=== PATIENT | male | born 1980 | race Caucasian/White ===

== ENCOUNTER 2017-07-12 10:20 | Emergency (ER) | payer OTHER ==
[~2017-07-12] VITALS: Ht 177.8 cm; Wt 84.4 kg
[2017-07-12 11:07] LABS: ABSOLUTE EOSINOPHILS 0.4 thou/uL (0.0-0.7); ABSOLUTE LYMPHOCYTES 2.4 thou/uL (0.8-5.3); ABSOLUTE MONOCYTES 0.6 thou/uL (0.0-1.2); ABSOLUTE NEUTROPHILS 2.5 thou/uL (1.6-8.1); BASOPHILS 0.8 %; EOSINOPHILS 7.1 %; HEMATOCRIT 42.3 % (42.0-52.0); LYMPHOCYTES 40.3 %; MCH 28.9 pg (26.0-34.0); MCHC 33.2 g/dL (28.0-37.0); MCV 87.2 fL (80.0-100.0); MONOCYTES 9.8 %; MPV 8.5 fl. (7.2-11.1); NUCLEATED RBCS 0 /100WBC; PLATELET COUNT* 262 thou/uL (150-400); RBC 4.85 mil/uL (4.50-6.00); RDW-CV 13.5 % (10.5-14.5); WBC 5.9 thou/uL (4.0-11.0)
[2017-07-12 11:14] LABS: ANION GAP 3 mmol/L (7-16); BUN 13 mg/dL (7-18); CALCIUM 8.4 mg/dL (8.5-10.1); CHLORIDE 108 mmol/L (98-107); CO2 32 mmol/L (21-32); CREATININE 0.9 mg/dL (0.6-1.3); GLUCOSE 82 mg/dL (70-99); POTASSIUM 4.1 mmol/L (3.5-5.1); SODIUM 143 mmol/L (136-145)
[2017-07-12 11:20] LABS: ALBUMIN 3.5 g/dL (3.4-5.0); ALKALINE PHOSPHATASE 77 U/L (46-116); LIPASE 205 U/L (73-393); SGOT 21 U/L (15-37); SGPT 29 U/L (30-65); TOTAL BILIRUBIN 0.1 mg/dL (<0.1-1.0); TROPONIN-I LEVEL <0.06 ng/mL (<0.06)
[2017-07-12 12:39] VITALS: BP 143/94
--- NOTE | 2017-07-13 15:23 | EKG ---
[place] [address] ELECTROCARDIOGRAM REPORT Name: JEN BONILLA JR Room: [place]#: [id number] Admission: 07/12/17 Attend Phys: Discharge: 07/12/17 Date of : 80 Report #: [id number] THIS REPORT FOR: //name// [facility] ED Test Date: 2017-07-12 Test Time: 10:25:33 Pat Name: JEN CHAD Department: Room: Gender: M Production Maintenance Mechanic: : 1980 Requested By: Kenyatta Sue Order Number: [id number] MD: Baljinder Call Measurements Intervals Alexander Rate: 76 P: 0 ME: 67 QRS: 67 QRSD: 104 T: 49 QT: 363 QTc: 409 Interpretive Statements ectopic atrial pacemaker Probable left ventricular hypertrophy ST elev, probable normal early repol pattern No previous ECG available for comparison Electronically Signed On 07-13-2017 15:23:08 SERVICE WORKER by Baljinder Call [email or web address] <ELECTRONICALLY SIGNED> By: Baljinder Call MD, [facility] 07/13/17 1523 1025 1025 Baljinder Call MD, [facility] /EPI
== END 2017-07-12 12:39 | disposition home or self-care (01) ==
LOC: M.ERS 10:20
PROVIDERS: Personal Emergency Response Attendant
DX: R07.89 Other chest pain (principal)